=== PATIENT | female | born 1960 | race Caucasian/White ===

== ENCOUNTER → 2020-07-22 16:28 | Outpatient (CLI) | payer OTHER, SELFPAY ==
--- NOTE | 2020-07-22 16:33 | DI.RAD.S_ITS ---
PROCEDURE: XR CERVICAL SPINE 4V OR 5V INDICATIONS: NECK PAIN TECHNIQUE: 5 views of the cervical spine were acquired, including flexion and extension views in the lateral projection. COMPARISON: None. FINDINGS: Bones: Postoperative changes are seen, with an anterior cervical spine fusion plate at the C5-C6 level. The fusion plate appears well seated. There is a disc spacer at C5-C6. No findings of hardware failure or hardware loosening are seen. On flexion-extension views, there is limited range of motion, without abnormal subluxation. No abnormal motion can be seen within the fused region. No displaced fractures are seen. No suspicious lytic or blastic lesions are seen. There is moderate disc space narrowing seen at C4-C5 and moderate to severe disc space narrowing at C6-C7. Endplate irregularity and sclerosis and partially bridging anterior osteophytes are seen at C6-C7. Soft tissues: Prevertebral soft tissues are normal in thickness. The visualized lung apices are unremarkable. IMPRESSION: Unremarkable C5-C6 postoperative hardware. Focal C6-C7 degenerative change. Dictated by: Lupillo Bradley M.D. on 07/22/2020 at 15:48 Approved by: Lupillo Bradley M.D. on 07/22/2020 at 15:50
== END ==
PROVIDERS: Family Provider Family Medicine; PCP Family Medicine; Referring Provider Neurological Surgery; Visit Provider Neurological Surgery
DX: M54.2 Cervicalgia (principal); M47.812 Spondylosis without myelopathy or radiculopathy, cervical region; Z98.1 Arthrodesis status
CPT/HCPCS: 72050; 72052

== ENCOUNTER → 2020-07-23 10:51 | Outpatient (CLI) | payer OTHER, SELFPAY ==
--- NOTE | 2020-07-23 | DI.RAD.S_ITS ---
PROCEDURE: XR LUMBAR SPINE 6V W BENDING INDICATIONS: NECK PAIN/LOW BACK PAIN TECHNIQUE: 7 views of the lumbar spine acquired. COMPARISON: None. FINDINGS: Bones: Partial sacralization of L5. Anterior fusion and disc prosthesis placement at L4-L5. No evidence of hardware failure or loosening. There is normal bony alignment. No vertebral body compression fractures. No suspicious bony lesions. Multilevel posterior facet hypertrophy. Suspect possible canal stenosis at L4-L5 and L5-S1. Soft tissues: Overlying bowel gas pattern is normal. No suspicious soft tissue calcifications. Flexion/extension: There is no abnormal motion on flexion and extension. IMPRESSION: 1. Partial sacralization of L5. 2. Fusion at L4-L5, expected appearance 3. No abnormal motion. 4. Lower lumbar facet hypertrophy. Suspect lower lumbar canal stenosis. Dictated by: Eric Shankar M.D. on 07/23/2020 at 11:30 Approved by: Eric Shankar M.D. on 07/23/2020 at 11:32
== END ==
PROVIDERS: Family Provider Family Medicine; PCP Family Medicine; Referring Provider Neurological Surgery; Visit Provider Neurological Surgery
DX: M54.5 Low back pain (principal); M54.2 Cervicalgia; M43.27 Fusion of spine, lumbosacral region; Z98.1 Arthrodesis status
CPT/HCPCS: 72040; 72114

== ENCOUNTER → 2020-10-02 07:02 | Outpatient (CLI) | payer OTHER, SELFPAY ==
--- NOTE | 2020-10-02 | DI.RAD.S_ITS ---
PROCEDURE: XR CERVICAL SPINE 4V OR 5V INDICATIONS: NECK PAIN TECHNIQUE: 5 views of the cervical spine were acquired. COMPARISON: [facility], , XR CERVICAL SPINE MIN 6V, 07/22/2020, 16:36. FINDINGS: Bones: No fractures or dislocations to the T1 level. ACDF at C5-C6 with anterior plate and screw fixation. No evidence of hardware failure or loosening. Moderately severe cervical spondylitic change. No suspicious bony lesions. There is multilevel facet arthropathy. There is chronic disc height loss at C6-C7. There is trace anterolisthesis of C4 on C5 during flexion measuring approximately 3 mm. There is trace retrolisthesis of C4 on C5 on extension. There is trace anterolisthesis of C3 on C4 on flexion which reduces on extension. Soft tissues: Prevertebral soft tissues are normal in thickness. IMPRESSION: 1. Intact surgical hardware at C5-C6. 2. At C4-C5, there is trace anterolisthesis during flexion and trace retrolisthesis on extension. 3. At C3-C4 there is trace anterolisthesis of C3 on C4 on flexion which reduces on extension. Dictated by: Eric Shankar M.D. on 10/02/2020 at 8:51 Approved by: Eric Shankar M.D. on 10/02/2020 at 8:55
[2020-10-02 07:33] LABS: Add Manual Diff / Slide Review NO; Basophils Absolute Auto 100 /uL (0-100); Eosinophils Absolute Auto 100 /uL (0-450); Eosinophils Percent Auto 2.1 % (2-4); Hemoglobin 12.2 g/dL (12.0-16.0); Lymphocytes Absolute Auto 2700 /uL (1100-4500); Mean Corpuscular HGB Conc 32.1 % (30-36); Mean Corpuscular Hemoglobin 28.6 PG (26-34); Monocytes Absolute Auto 400 /uL (0-900); Monocytes Percent Auto 6.9 % (3-14); Neutrophils Absolute Auto 2700 /uL (1500-7000); Platelet Count 239 X10^3/uL (150-400); Red Blood Cell Count 4.27 X10^6/uL (4.0-5.2); Red Cell Distribution Width 13.4 % (11.6-14.8)
[2020-10-02 07:37] LABS: Alanine Aminotransferase 29 IU/L (<35); Albumin 4.4 g/dL (3.5-5.0); Albumin Globulin Ratio 1.5 (1.0-2.8); Alkaline Phosphatase 56 U/L (38-126); Aspartate Aminotransferase 26 IU/L (14-36); BUN Creatinine Ratio 22.1 (6-22); Bilirubin Total 0.3 mg/dL (0.2-1.3); Blood Urea Nitrogen 15 mg/dL (7-17); Calcium 9.4 mg/dL (8.4-10.2); Carbon Dioxide 32 mmol/L (22-32); Chloride 97 mmol/L (98-107); Estimated Glomerular Filt Rate > 60.0 mL/min (>60); Globulin 2.9 g/dL (1.7-4.1); Glucose 146 mg/dL (70-100); HEMOLYSIS < 15 (0-50); Potassium 4.6 mmol/L (3.4-5.1); Sodium 132 mmol/L (137-145); Total Protein 7.3 g/dL (6.3-8.2)
[2020-10-02 08:12] LABS: Ferritin 95 ng/mL (11-264)
[2020-10-02 08:19] LABS: HEMOLYSIS < 15 (0-50); Iron 78 ug/dL (37-170)
[2020-10-02 08:30] LABS: Percent Iron Saturation 21 % (15-50); Total Iron Binding Capacity 378 ug/dL (265-497); Transferrin 312 mg/dL (206-381)
[2020-10-02 08:40] LABS: Free T4, Direct Thyroxine 1.06 ng/dL (0.78-2.19)
[2020-10-02 08:54] LABS: Thyroid Stimulating Hormone 3.02 uIU/mL (0.47-4.68)
[2020-10-03 09:07] LABS: Triiodothyronine T3 Total 88 ng/dL (71-180)
== END ==
PROVIDERS: Family Provider Family Medicine; PCP Family Medicine; Referring Provider Internal Medicine Hematology & Oncology; Visit Provider Internal Medicine Hematology & Oncology
DX: M54.2 Cervicalgia (principal); D50.9 Iron deficiency anemia, unspecified; R53.83 Other fatigue
CPT/HCPCS: 36415; 72050; 80053; 82728; 83540; 83550; 84439; 84443; 84480; 85025

== ENCOUNTER → 2020-10-09 16:00 | Oncology outpatient (ONC) | payer OTHER, SELFPAY ==
--- NOTE | 2020-03-27 10:18 | P.CONONC_ITS ---
History of Present Illness - Data of Consult Patient: new to practice Consult date: 03/27/20 Requesting Physician: Dr. Haylee Thrasher Primary Care Provider: Shawna Bray MD - Consult Narrative Reason for consult: Iron deficiency anemia Narrative: Gisell Mitchell is a 60 year old female. She has a long history of severe gastroesophageal reflux disease. She has been followed by Dr. Dee Thrasher at [facility]. On 02/05/2020, patient underwent upper endoscopy which showed no evidence of Rivera's esophagus and no hiatal hernia. Biopsies were all benign. Patient also underwent a colonoscopy which showed 2 mm polyp in the sigmoid colon and trace internal hemorrhoids and tiny external hemorrhoidal skin tag. Pathology of the removed polyps was hyperplastic and no malignancy. Anti reflux surgery was recommended and patient agrees to move forward with the surgery. Patient said that she has a lot of regurgitation and a lot of gas. She hurts underneath the xiphoid process. In addition she has noticed tremendous hair loss. She said that her granddaughter has complained a lot. Patient admits to chronic anemia off and on through years. In addition patient has weight gain recently about 20 lb or so. Thyroid function test was normal. She denies any bleeding events. Currently she is taking multiple vitamins with iron in them which she started recently. Gisell brought with her a table of her labs since March 2015 until December 2019. Her white cell count has always within the normal range. Her hemoglobin has shown a rather very slow gradual decline. Her most recent hemoglobin level on 12/31/2019 was 11.4. Her MCV also showed a slow decline. Her most recent MCV on 12/31/2019 was 85.9. Her platelet counts though have remained within the normal range. Her ferritin level has been within the lower limit of normal until December 2018. There after it has decreased to below the normal. Most recent ferritin on 01/04/2020 was 11. CC: Yoli Chauhan MD Home Medications and Allergies Allergies Allergy/AdvReac Type Severity Reaction Status Date / Time bupropion [BUPROPION] Allergy Intermediate NAUSEA Verified 03/27/20 10:25 escitalopram [ESCITALOPRAM] Allergy Intermediate NAUSEA Verified 03/27/20 10:26 Medical History - Medical, Surgical, Family History Medical History: Medical History (Last Updated 03/27/20 @ 18:24 by Yoli Chauhan MD) Acid reflux Anxiety Diverticulosis Hyperlipidemia Hypertension Type 2 diabetes mellitus Surgical History: Surgical History (Last Updated 03/27/20 @ 18:26 by Yoli Chauhan MD) H/O bilateral salpingo-oophorectomy H/O shoulder surgery H/O: hysterectomy History of carpal tunnel release Hx of tubal ligation Family History: Family History (Last Updated 03/27/20 @ 18:27 by Yoli Chauhan MD) Mother Hypertension Father Colon cancer - Social History Smoking Status: Unknown if ever smoked Review of Systems All systems PM: reviewed and no additional remarkable complaints except as stated Constitutional: weight gain Gastrointestinal: nausea, diarrhea Exam Vital signs: 03/27/20 18:28 Last Vital Signs Temp 98.3 F 03/27/20 10:21 Pulse 75 03/27/20 10:21 Resp 16 03/27/20 10:21 BP 144/85 H 03/27/20 10:21 Pulse Ox 98 03/27/20 10:21 - Constitutional positive no acute distress, positive obese, positive chronically ill appearing, positive cooperative - Routine HEENT Exam Head: Present: normocephalic, atraumatic Eye: Present: EOMI, PERRL, normal accommodation. Absent: conjunctival icterus - Routine Neck Exam Present: supple. Absent: lymphadenopathy, thyromegaly - Routine Chest/Breast/Axilla Exam Axillae: Absent: lymphadenopathy - Routine Respiratory Exam Present: Clear to auscultation bilaterally. Absent: accessory muscle use, rales, wheezes - Routine Cardiovascular Exam Present: RRR, S1, S2. Absent: murmur, gallop, rubs - Routine Abdominal Exam Present: soft. Absent: tenderness Palpation/Percussion: Absent: hepatomegaly, splenomegaly - Routine Extremities Exam Absent: edema - Routine Neurological Exam Present: alert, oriented X3, CN II-XII intact. Absent: sensory deficit, motor deficit - Routine Psychiatric Exam Present: normal affect Results - Labs Pending Assessment and Plan (1) Iron (Fe) deficiency anemia Overview: 60-year-old female with chronic iron deficiency anemia of unknown etiology. Assessment: I reviewed the laboratory tests results patient brought in. Patient has significant iron deficiency with ferritin level as low as 11 in December 2019. I talked with the patient that I am going to repeat the iron panels together with CBC and CMPs. I would also proceed with intravenous iron infusion. We will see the patient in about 8 weeks to re-evaluate the iron status. Plan: CBC, CMP, iron panel, ferritin Venofer 200 mg weekly IV x5 Return to clinic in 8 weeks, repeat CBC, CMP, iron panel, and ferritin.
[2020-03-27 10:21] VITALS: BP 144/85; PULSE 75; RESP 16; TEMP 36.8; O2SAT 98
--- NOTE | 2020-03-27 10:26 | PC.NURSE ---
Addendum entered by Gena Devlin 04/01/20 13:37: correct fax # [phone] new clinic name: [facility] new info per patient 04/01/20 Original Note: [place] PCP INFORMATION Dr. Mr. [facility] P:
[2020-03-27 11:31] LABS: Add Manual Diff / Slide Review NO; Basophils Absolute Auto 0 /uL (0-100); Basophils Percent Auto 0.9 % (0-2); Eosinophils Absolute Auto 100 /uL (0-450); Eosinophils Percent Auto 1.9 % (2-4); Hematocrit 34.7 % (36-46); Hemoglobin 11.4 g/dL (12.0-16.0); Lymphocytes Absolute Auto 2400 /uL (1100-4500); Lymphocytes Percent Auto 47.1 % (25-40); Mean Corpuscular HGB Conc 32.9 % (30-36); Mean Corpuscular Hemoglobin 27.7 PG (26-34); Mean Corpuscular Volume 84.2 fL (80-100); Monocytes Absolute Auto 400 /uL (0-900); Monocytes Percent Auto 7.8 % (3-14); Neutrophils Absolute Auto 2200 /uL (1500-7000); Neutrophils Percent Auto 42.3 % (50-75); Platelet Count 223 X10^3/uL (150-400); Red Blood Cell Count 4.12 X10^6/uL (4.0-5.2); White Blood Cell Count 5.1 X10^3/uL (4.5-11.0)
[2020-03-27 11:56] LABS: Alanine Aminotransferase 27 IU/L (<35); Albumin 4.4 g/dL (3.5-5.0); Albumin Globulin Ratio 1.5 (1.0-2.8); Alkaline Phosphatase 66 U/L (38-126); Aspartate Aminotransferase 37 IU/L (14-36); BUN Creatinine Ratio 17.5 (6-22); Bilirubin Total 0.6 mg/dL (0.2-1.3); Blood Urea Nitrogen 11 mg/dL (7-17); Calcium 9.7 mg/dL (8.4-10.2); Carbon Dioxide 25 mmol/L (22-32); Chloride 100 mmol/L (98-107); Estimated Glomerular Filt Rate > 60.0 mL/min (>60); Globulin 2.9 g/dL (1.7-4.1); Glucose 128 mg/dL (70-100); HEMOLYSIS < 15 (0-50); Lactate Dehydrogenase 410 U/L (313-618); Potassium 4.5 mmol/L (3.4-5.1); Sodium 133 mmol/L (137-145); Total Protein 7.3 g/dL (6.3-8.2)
[2020-03-27 12:05] LABS: HEMOLYSIS < 15 (0-50); Iron 101 ug/dL (37-170)
[2020-03-27 12:15] LABS: Percent Iron Saturation 23 % (15-50); Total Iron Binding Capacity 447 ug/dL (265-497); Transferrin 364 mg/dL (206-381)
[2020-03-27 12:31] LABS: Ferritin 11 ng/mL (11-264)
[2020-04-01] MEDS: IRON SUCROSE 200 MG in SODIUM CHLORIDE 0.9% 100 ML 220 ML IV (14:00)
[2020-04-01 14:05] VITALS: BP 147/77; PULSE 80; RESP 18; TEMP 36.6; O2SAT 98
--- NOTE | 2020-04-01 14:06 | PC.NURSE ---
Pt reported that they are having extreme fatigue, it is usual to have a one hour nap, but recently it has been 3 hours with no effect and still tired afterwards. Pt also reported they are having mouth sores that last about a week and are painful. Making the provider aware with this note.
[2020-04-08] MEDS: IRON SUCROSE 200 MG in SODIUM CHLORIDE 0.9% 100 ML 220 ML IV (15:15)
[2020-04-08 15:26] VITALS: BP 144/83; PULSE 88; RESP 16; TEMP 36.9; O2SAT 99
[2020-04-16 12:05] VITALS: BP 128/65; PULSE 85; RESP 16; TEMP 36.6; O2SAT 98
[2020-04-16] MEDS: IRON SUCROSE 200 MG in SODIUM CHLORIDE 0.9% 100 ML 220 ML IV (12:27)
[2020-04-24 14:12] VITALS: BP 131/77; PULSE 73; RESP 16; TEMP 37; O2SAT 98
[2020-04-24] MEDS: IRON SUCROSE 200 MG in SODIUM CHLORIDE 0.9% 100 ML 220 ML IV (14:29)
[2020-04-29] MEDS: IRON SUCROSE 200 MG in SODIUM CHLORIDE 0.9% 100 ML 220 ML IV (14:32)
--- NOTE | 2020-04-29 15:46 | CM.MNRNOTE ---
Pt denies chest pain and SOB. Denies N/V. Speech clear. Gait steady. No s/s of acute distress noted. Tolerated iron infusion w/o difficulty.
[2020-05-13 08:27] LABS: Add Manual Diff / Slide Review NO; Basophils Absolute Auto 0 /uL (0-100); Basophils Percent Auto 0.7 % (0-2); Eosinophils Absolute Auto 100 /uL (0-450); Eosinophils Percent Auto 2.4 % (2-4); Hematocrit 37.1 % (36-46); Hemoglobin 12.2 g/dL (12.0-16.0); Lymphocytes Absolute Auto 2200 /uL (1100-4500); Lymphocytes Percent Auto 42.7 % (25-40); Mean Corpuscular HGB Conc 32.8 % (30-36); Mean Corpuscular Hemoglobin 28.4 PG (26-34); Mean Corpuscular Volume 86.6 fL (80-100); Monocytes Absolute Auto 400 /uL (0-900); Monocytes Percent Auto 8.7 % (3-14); Neutrophils Absolute Auto 2300 /uL (1500-7000); Neutrophils Percent Auto 45.5 % (50-75); Platelet Count 214 X10^3/uL (150-400); Red Blood Cell Count 4.28 X10^6/uL (4.0-5.2); Red Cell Distribution Width 15.1 % (11.6-14.8); White Blood Cell Count 5.1 X10^3/uL (4.5-11.0)
[2020-05-13 08:38] LABS: Alanine Aminotransferase 33 IU/L (<35); Albumin 4.4 g/dL (3.5-5.0); Albumin Globulin Ratio 1.6 (1.0-2.8); Alkaline Phosphatase 56 U/L (38-126); Aspartate Aminotransferase 29 IU/L (14-36); BUN Creatinine Ratio 21.9 (6-22); Bilirubin Total 0.4 mg/dL (0.2-1.3); Blood Urea Nitrogen 16 mg/dL (7-17); Calcium 9.2 mg/dL (8.4-10.2); Carbon Dioxide 29 mmol/L (22-32); Chloride 101 mmol/L (98-107); Estimated Glomerular Filt Rate > 60.0 mL/min (>60); Globulin 2.8 g/dL (1.7-4.1); Glucose 129 mg/dL (70-100); HEMOLYSIS < 15 (0-50); Potassium 4.8 mmol/L (3.4-5.1); Sodium 138 mmol/L (137-145); Total Protein 7.2 g/dL (6.3-8.2)
[2020-05-13 09:13] LABS: Ferritin 193 ng/mL (11-264)
[2020-05-13 09:16] LABS: HEMOLYSIS < 15 (0-50); Iron 97 ug/dL (37-170)
[2020-05-13 09:26] LABS: Percent Iron Saturation 28 % (15-50); Total Iron Binding Capacity 343 ug/dL (265-497); Transferrin 298 mg/dL (206-381)
[2020-05-22 11:10] VITALS: BP 138/83; PULSE 79; RESP 16; TEMP 36.7; O2SAT 99
--- NOTE | 2020-05-22 11:27 | P.PNONC_ITS ---
PN -Subjective Interval history: ID/CC: 60 year old female with iron deficiency anemia HPI Gisell Mitchell is a 60 year old female. She has a long history of severe gastroesophageal reflux disease. She has been followed by Dr. Dee Thrasher at [facility]. On 02/05/2020, patient underwent upper endoscopy which showed no evidence of Rivera's esophagus and no hiatal hernia. Biopsies were all benign. Patient also underwent a colonoscopy which showed 2 mm polyp in the sigmoid colon and trace internal hemorrhoids and tiny external hemorrhoidal skin tag. Pathology of the removed polyps was hyperplastic and no malignancy. Anti- reflux surgery was recommended and patient agrees to move forward with the surgery. Gisell brought with her a table of her labs since March 2015 until December 2019. Her white cell count has always within the normal range. Her hemoglobin has shown a rather very slow gradual decline. Her hemoglobin level on 12/31/2019 was 11.4. Her MCV also showed a slow decline. Her MCV on 12/31/2019 was 85.9. Her platelet counts though have remained within the normal range. Her ferritin level has been within the lower limit of normal until December 2018. Thereafter it has decreased to below the normal. Frritin on 01/04/2020 was 11. Interval events: She cancelled her surgery on 04/29/2020 due to family issues. She is planning to get it next spring. During the interim patient completed Venofer infusion weekly 200 mg x 5. Patient tolerated well. Patient said that she has noticed slightly better energy level. However she said she cannot tell for sure because she was so busy during this. Of the time taking care of her in-laws. She denies any bleeding events. - Patient Self-Reported Symptoms SR Constitution: Fatigue/Malaise SR eye issues: Vision changes SR ears, nose, mouth, throat issues: Ears ringing, Mouth sores SR respiratory issues: Shortness of breath SR Cardiovascular issues: Dizzy/lightheaded SR Skin issues: Dry skin, Hair loss or scalp prob, Nail changes SR Gastrointestinal issues: Nausea, Diarrhea, Abdominal pain SR Musculoskeletal issues: Joint pain or swelling, Muscle pain or cramps, Back or neck pain, Difficulty walking SR Neuro issues: Lightheaded/dizzy, Difficulty balancing SR Hematologic issues: Slow healing SR Endocrine issues: Hot flashes - Additional ROS All systems PM: reviewed and no additional remarkable complaints except as stated Home Medications and Allergies Allergies Allergy/AdvReac Type Severity Reaction Status Date / Time bupropion [BUPROPION] Allergy Intermediate NAUSEA Verified 03/27/20 10:25 escitalopram [ESCITALOPRAM] Allergy Intermediate NAUSEA Verified 03/27/20 10:26 Exam Vital signs: Vital Signs Temp Pulse Resp BP Pulse Ox 05/22/20 11:10 98.1 F 79 16 138/83 99 Intake and Output 05/21/20 05/22/20 05/22/20 23:59 07:59 15:59 Other: Weight 71.2 kg Patient Weight 05/22/20 23:59 Weight 71.2 kg - Constitutional positive no acute distress, positive obese, positive cooperative - Routine HEENT Exam Head: Present: normocephalic, atraumatic Eye: Present: EOMI, PERRL ENT: Present: mucous membranes moist - Routine Neck Exam Present: supple. Absent: lymphadenopathy, thyromegaly - Routine Chest/Breast/Axilla Exam Axillae: Absent: lymphadenopathy - Routine Respiratory Exam Present: Clear to auscultation bilaterally. Absent: wheezes - Routine Cardiovascular Exam Present: RRR, S1, S2. Absent: murmur, gallop, rubs - Routine Abdominal Exam Present: soft. Absent: tenderness, distended, organomegaly - Routine Extremities Exam Absent: edema - Routine Neurological Exam Present: alert, oriented X3, CN II-XII intact. Absent: sensory deficit, motor deficit - Routine Psychiatric Exam Present: normal affect Results - Labs Laboratory Last Values WBC 5.1 X10^3/uL (4.5-11.0) 05/13/20 08:14 RBC 4.28 X10^6/uL (4.0-5.2) 05/13/20 08:14 Hgb 12.2 g/dL (12.0-16.0) 05/13/20 08:14 Hct 37.1 % (36-46) 05/13/20 08:14 MCV 86.6 fL (80-100) 05/13/20 08:14 MCH 28.4 PG (26-34) 05/13/20 08:14 MCHC 32.8 % (30-36) 05/13/20 08:14 RDW 15.1 % (11.6-14.8) H 05/13/20 08:14 Plt Count 214 X10^3/uL (150-400) 05/13/20 08:14 Neut % (Auto) 45.5 % (50-75) L 05/13/20 08:14 Lymph % (Auto) 42.7 % (25-40) H 05/13/20 08:14 [place] % (Auto) 8.7 % (3-14) 05/13/20 08:14 Eos % (Auto) 2.4 % (2-4) 05/13/20 08:14 Baso % (Auto) 0.7 % (0-2) 05/13/20 08:14 Neut # (Auto) 2300 /uL (0970-9361) 05/13/20 08:14 Lymph # (Auto) 2200 /uL (4434-7500) 05/13/20 08:14 [place] # (Auto) 400 /uL (0-900) 05/13/20 08:14 Eos # (Auto) 100 /uL (0-450) 05/13/20 08:14 Baso # (Auto) 0 /uL (0-100) 05/13/20 08:14 Sodium 138 mmol/L (137-145) 05/13/20 08:14 Potassium 4.8 mmol/L (3.4-5.1) 05/13/20 08:14 Chloride 101 mmol/L (98-107) 05/13/20 08:14 Carbon Dioxide 29 mmol/L (22-32) 05/13/20 08:14 BUN 16 mg/dL (7-17) 05/13/20 08:14 Creatinine 0.73 mg/dL (0.52-1.04) 05/13/20 08:14 Estimated GFR > 60.0 mL/min (>60) 05/13/20 08:14 BUN/Creatinine Ratio 21.9 (6-22) 05/13/20 08:14 Glucose 129 mg/dL (70-100) H 05/13/20 08:14 Calcium 9.2 mg/dL (8.4-10.2) 05/13/20 08:14 Iron 97 ug/dL (37-170) 05/13/20 08:14 TIBC 343 ug/dL (265-497) 05/13/20 08:14 % Saturation 28 % (15-50) 05/13/20 08:14 Transferrin 298 mg/dL (206-381) 05/13/20 08:14 Ferritin 193 ng/mL (11-264) 05/13/20 08:14 Total Bilirubin 0.4 mg/dL (0.2-1.3) 05/13/20 08:14 AST 29 IU/L (14-36) 05/13/20 08:14 ALT 33 IU/L (<35) 05/13/20 08:14 Alkaline Phosphatase 56 U/L (38-126) 05/13/20 08:14 Lactate Dehydrogenase 410 U/L (313-618) 03/27/20 11:20 Total Protein 7.2 g/dL (6.3-8.2) 05/13/20 08:14 Albumin 4.4 g/dL (3.5-5.0) 05/13/20 08:14 Globulin 2.8 g/dL (1.7-4.1) 05/13/20 08:14 Albumin/Globulin Ratio 1.6 (1.0-2.8) 05/13/20 08:14 Assessment and Plan (1) Iron (Fe) deficiency anemia Overview: 60-year-old female with chronic iron deficiency anemia of unknown etiology. Assessment: Patient completed the iron infusion Venofer weekly x5 on 04/01/2020. Today I reviewed the lab results with the patient. The hemoglobin level has normalized. The iron panel has completely normalized. I talked with the patient that I will continue current active surveillance. If patient again shows iron deficiency, patient will need iron infusion again. Patient voiced understanding. Plan: Return to clinic in 12 weeks, repeat CBC, CMP, iron panel, and ferritin.
[2020-08-19 07:41] LABS: Add Manual Diff / Slide Review NO; Basophils Absolute Auto 0 /uL (0-100); Basophils Percent Auto 0.5 % (0-2); Eosinophils Absolute Auto 100 /uL (0-450); Eosinophils Percent Auto 2.4 % (2-4); Hematocrit 36.5 % (36-46); Hemoglobin 12.1 g/dL (12.0-16.0); Lymphocytes Absolute Auto 2500 /uL (1100-4500); Lymphocytes Percent Auto 45.5 % (25-40); Mean Corpuscular HGB Conc 33.1 % (30-36); Mean Corpuscular Volume 87.6 fL (80-100); Monocytes Absolute Auto 500 /uL (0-900); Monocytes Percent Auto 8.4 % (3-14); Neutrophils Absolute Auto 2300 /uL (1500-7000); Neutrophils Percent Auto 43.2 % (50-75); Platelet Count 234 X10^3/uL (150-400); Red Blood Cell Count 4.17 X10^6/uL (4.0-5.2); Red Cell Distribution Width 13.3 % (11.6-14.8); White Blood Cell Count 5.4 X10^3/uL (4.5-11.0)
[2020-08-19 07:52] LABS: Alanine Aminotransferase 29 IU/L (<35); Albumin 4.3 g/dL (3.5-5.0); Albumin Globulin Ratio 1.4 (1.0-2.8); Alkaline Phosphatase 63 U/L (38-126); Aspartate Aminotransferase 27 IU/L (14-36); BUN Creatinine Ratio 11.9 (6-22); Bilirubin Total 0.3 mg/dL (0.2-1.3); Blood Urea Nitrogen 8 mg/dL (7-17); Calcium 9.1 mg/dL (8.4-10.2); Carbon Dioxide 31 mmol/L (22-32); Chloride 99 mmol/L (98-107); Estimated Glomerular Filt Rate > 60.0 mL/min (>60); Glucose 149 mg/dL (70-100); HEMOLYSIS < 15 (0-50); Potassium 4.4 mmol/L (3.4-5.1); Sodium 134 mmol/L (137-145); Total Protein 7.3 g/dL (6.3-8.2)
[2020-08-19 08:08] LABS: HEMOLYSIS < 15 (0-50); Iron 91 ug/dL (37-170)
[2020-08-19 08:19] LABS: Percent Iron Saturation 24 % (15-50); Total Iron Binding Capacity 377 ug/dL (265-497); Transferrin 308 mg/dL (206-381)
[2020-08-19 08:27] LABS: Ferritin 138 ng/mL (11-264)
[2020-08-28 11:18] VITALS: BP 145/82; PULSE 69; RESP 18; O2SAT 100
--- NOTE | 2020-08-28 11:45 | ONC.PN ---
PN -Subjective Interval history: ID/CC: 60 year old female with iron deficiency anemia HPI Gisell Mitchell is a 60 year old female. She has a long history of severe gastroesophageal reflux disease. She has been followed by Dr. Dee Thrasher at [facility]. On 02/05/2020, patient underwent upper endoscopy which showed no evidence of Rivera's esophagus and no hiatal hernia. Biopsies were all benign. Patient also underwent a colonoscopy which showed 2 mm polyp in the sigmoid colon and trace internal hemorrhoids and tiny external hemorrhoidal skin tag. Pathology of the removed polyps was hyperplastic and no malignancy. Anti-reflux surgery was recommended and patient agrees to move forward with the surgery. Gisell brought with her a table of her labs since March 2015 until December 2019. Her white cell count has always within the normal range. Her hemoglobin has shown a rather very slow gradual decline. Her hemoglobin level on 12/31/2019 was 11.4. Her MCV also showed a slow decline. Her MCV on 12/31/2019 was 85.9. Her platelet counts though have remained within the normal range. Her ferritin level has been within the lower limit of normal until December 2018. Thereafter it has decreased to below the normal. Frritin on 01/04/2020 was 11. Interval events: Patient presents here today for scheduled follow-up visit. Patient said that she noticed worsening hair loss, worsening fatigue, and is becoming more sleepy. She said she is also drinking lot of fluids. Otherwise she denies any bleeding events. - Patient Self-Reported Symptoms SR Constitution: Fatigue/Malaise, Night Sweats SR eye issues: Vision changes SR ears, nose, mouth, throat issues: Ears ringing, Mouth sores SR respiratory issues: Shortness of breath SR Cardiovascular issues: Dizzy/lightheaded SR Skin issues: Dry skin, Hair loss or scalp prob SR Gastrointestinal issues: Diarrhea SR Musculoskeletal issues: Joint pain or swelling, Muscle weakness, Muscle pain or cramps, Back or neck pain, Cold hands or feet, Difficulty walking SR Neuro issues: Headache, Lightheaded/dizzy, Numbness or tingling, Difficulty balancing SR Hematologic issues: Slow healing SR Endocrine issues: Excessive thirst, Hot flashes - Additional ROS All systems PM: reviewed and no additional remarkable complaints except as stated Home Medications and Allergies Home Medications Medication Instructions Recorded Confirmed Type albuterol sulfate 2.5 mg INHALATION QID PRN 05/22/20 05/22/20 History albuterol sulfate [ProAir HFA] 1 inh INHALATION QID PRN 05/22/20 05/22/20 History ascorbic acid-vitamin E-biotin tab PO 05/22/20 History [Hair, Skin, Nails with Biotin] clonazepam 1 mg PO BEDTIME 05/22/20 05/22/20 History conjugated estrogens [Premarin] 0.3 mg PO DAILY 05/22/20 05/22/20 History cyclobenzaprine 5 mg PRN 05/22/20 History ezetimibe-simvastatin [Vytorin 1 tab PO DAILY 05/22/20 05/22/20 History 10-40] fexofenadine [[place] Allergy] 180 mg PO DAILY 05/22/20 05/22/20 History fluoxetine [Prozac] 20 mg PO DAILY 05/22/20 05/22/20 History fluticasone propion-salmeterol INHALATION 05/22/20 History [Advair Diskus] fluticasone propionate [Allergy 1 spray INTRANASAL BID 05/22/20 05/22/20 History Relief (fluticasone)] gabapentin 100 mg PO TID 05/22/20 05/22/20 History ibuprofen 800 mg PO Q6H PRN 05/22/20 05/22/20 History meclizine 12.5 mg PO BID PRN 05/22/20 05/22/20 History meloxicam 15 mg PO DAILY 05/22/20 05/22/20 History metformin 500 mg PO BID 05/22/20 05/22/20 History methocarbamol 500 mg PO PRN 05/22/20 History olopatadine [Pazeo] 1 drp OPHTHALMIC (EYE) DAILY 05/22/20 05/22/20 History omeprazole 40 mg PO BID 05/22/20 05/22/20 History Allergies Allergy/AdvReac Type Severity Reaction Status Date / Time bupropion [BUPROPION] Allergy Intermediate NAUSEA Verified 03/27/20 10:25 escitalopram [ESCITALOPRAM] Allergy Intermediate NAUSEA Verified 03/27/20 10:26 Exam Vital signs: Vital Signs Pulse Resp BP Pulse Ox 08/28/20 11:18 69 18 145/82 H 100 Intake and Output 08/27/20 08/28/20 08/28/20 23:59 07:59 15:59 Other: Weight 72.6 kg Patient Weight 08/28/20 23:59 Weight 72.6 kg Results - Labs Laboratory Last Values WBC 5.4 X10^3/uL (4.5-11.0) 08/19/20 07:33 RBC 4.17 X10^6/uL (4.0-5.2) 08/19/20 07:33 Hgb 12.1 g/dL (12.0-16.0) 08/19/20 07:33 Hct 36.5 % (36-46) 08/19/20 07:33 MCV 87.6 fL (80-100) 08/19/20 07:33 MCH 29.0 PG (26-34) 08/19/20 07:33 MCHC 33.1 % (30-36) 08/19/20 07:33 RDW 13.3 % (11.6-14.8) 08/19/20 07:33 Plt Count 234 X10^3/uL (150-400) 08/19/20 07:33 Neut % (Auto) 43.2 % (50-75) L 08/19/20 07:33 Lymph % (Auto) 45.5 % (25-40) H 08/19/20 07:33 [place] % (Auto) 8.4 % (3-14) 08/19/20 07:33 Eos % (Auto) 2.4 % (2-4) 08/19/20 07:33 Baso % (Auto) 0.5 % (0-2) 08/19/20 07:33 Neut # (Auto) 2300 /uL (0186-4446) 08/19/20 07:33 Lymph # (Auto) 2500 /uL (7921-1289) 08/19/20 07:33 [place] # (Auto) 500 /uL (0-900) 08/19/20 07:33 Eos # (Auto) 100 /uL (0-450) 08/19/20 07:33 Baso # (Auto) 0 /uL (0-100) 08/19/20 07:33 Sodium 134 mmol/L (137-145) L 08/19/20 07:33 Potassium 4.4 mmol/L (3.4-5.1) 08/19/20 07:33 Chloride 99 mmol/L (98-107) 08/19/20 07:33 Carbon Dioxide 31 mmol/L (22-32) 08/19/20 07:33 BUN 8 mg/dL (7-17) 08/19/20 07:33 Creatinine 0.67 mg/dL (0.52-1.04) 08/19/20 07:33 Estimated GFR > 60.0 mL/min (>60) 08/19/20 07:33 BUN/Creatinine Ratio 11.9 (6-22) 08/19/20 07:33 Glucose 149 mg/dL (70-100) H 08/19/20 07:33 Calcium 9.1 mg/dL (8.4-10.2) 08/19/20 07:33 Iron 91 ug/dL (37-170) 08/19/20 07:33 TIBC 377 ug/dL (265-497) 08/19/20 07:33 % Saturation 24 % (15-50) 08/19/20 07:33 Transferrin 308 mg/dL (206-381) 08/19/20 07:33 Ferritin 138 ng/mL (11-264) 08/19/20 07:33 Total Bilirubin 0.3 mg/dL (0.2-1.3) 08/19/20 07:33 AST 27 IU/L (14-36) 08/19/20 07:33 ALT 29 IU/L (<35) 08/19/20 07:33 Alkaline Phosphatase 63 U/L (38-126) 08/19/20 07:33 Lactate Dehydrogenase 410 U/L (313-618) 03/27/20 11:20 Total Protein 7.3 g/dL (6.3-8.2) 08/19/20 07:33 Albumin 4.3 g/dL (3.5-5.0) 08/19/20 07:33 Globulin 3.0 g/dL (1.7-4.1) 08/19/20 07:33 Albumin/Globulin Ratio 1.4 (1.0-2.8) 08/19/20 07:33 Assessment and Plan (1) Iron (Fe) deficiency anemia Overview: 60-year-old female with chronic iron deficiency anemia of unknown etiology.Patient completed the iron infusion Venofer weekly x5 on 04/01/2020. Assessment: Clinically, patient is complaining fatigue, hair loss, and sleepiness. I reviewed the lab results with the patient. The H and H were normal. Iron panels were normal. Ferritin level was normal. I talked with her and her that I do not think that iron deficiency is the reason for the clinical symptoms. Other possibilities including poor controlled diabetes or hypothyroidism. I would recommend that we continue monitoring closely. Plan: Return to clinic in 6 weeks, repeat CBC, CMP, iron panel, and ferritin, TSH, FT4, T3
--- NOTE | 2020-10-09 17:15 | ONC.PN ---
PN -Subjective Interval history: ID/CC: 60 year old female with iron deficiency anemia HPI Gisell Mitchell is a 60 year old female. She has a long history of severe gastroesophageal reflux disease. She has been followed by Dr. Dee Thrasher at [facility]. On 02/05/2020, patient underwent upper endoscopy which showed no evidence of Rivera's esophagus and no hiatal hernia. Biopsies were all benign. Patient also underwent a colonoscopy which showed 2 mm polyp in the sigmoid colon and trace internal hemorrhoids and tiny external hemorrhoidal skin tag. Pathology of the removed polyps was hyperplastic and no malignancy. Anti-reflux surgery was recommended and patient agrees to move forward with the surgery. Gisell brought with her a table of her labs since March 2015 until December 2019. Her white cell count has always within the normal range. Her hemoglobin has shown a rather very slow gradual decline. Her hemoglobin level on 12/31/2019 was 11.4. Her MCV also showed a slow decline. Her MCV on 12/31/2019 was 85.9. Her platelet counts though have remained within the normal range. Her ferritin level has been within the lower limit of normal until December 2018. Thereafter it has decreased to below the normal. Frritin on 01/04/2020 was 11. Interval events: Patient completed iron infusion about in March 2020. However patient said that even after the iron infusion, she still complaining significant fatigue and low energy level. She denies any bleeding events. She denies any nausea or vomiting. No diarrhea and no constipation. - Patient Self-Reported Symptoms SR Constitution: Fatigue/Malaise, Night Sweats SR eye issues: Vision changes SR ears, nose, mouth, throat issues: Ears ringing, Mouth sores SR respiratory issues: Shortness of breath SR Cardiovascular issues: Dizzy/lightheaded SR Skin issues: Dry skin, Hair loss or scalp prob SR Gastrointestinal issues: Diarrhea SR Musculoskeletal issues: Joint pain or swelling, Muscle weakness, Muscle pain or cramps, Back or neck pain, Cold hands or feet, Difficulty walking SR Neuro issues: Headache, Lightheaded/dizzy, Numbness or tingling, Difficulty balancing SR Hematologic issues: Slow healing SR Endocrine issues: Excessive thirst, Hot flashes - Additional ROS All systems PM: reviewed and no additional remarkable complaints except as stated Home Medications and Allergies Home Medications Medication Instructions Recorded Confirmed Type albuterol sulfate 2.5 mg INHALATION QID PRN 05/22/20 05/22/20 History albuterol sulfate [ProAir HFA] 1 inh INHALATION QID PRN 05/22/20 05/22/20 History ascorbic acid-vitamin E-biotin tab PO 05/22/20 History [Hair, Skin, Nails with Biotin] clonazepam 1 mg PO BEDTIME 05/22/20 05/22/20 History conjugated estrogens [Premarin] 0.3 mg PO DAILY 05/22/20 05/22/20 History cyclobenzaprine 5 mg PRN 05/22/20 History ezetimibe-simvastatin [Vytorin 1 tab PO DAILY 05/22/20 05/22/20 History 10-40] fexofenadine [Medina Allergy] 180 mg PO DAILY 05/22/20 05/22/20 History fluoxetine [Prozac] 20 mg PO DAILY 05/22/20 05/22/20 History fluticasone propion-salmeterol INHALATION 05/22/20 History [Advair Diskus] fluticasone propionate [Allergy 1 spray INTRANASAL BID 05/22/20 05/22/20 History Relief (fluticasone)] gabapentin 100 mg PO TID 05/22/20 05/22/20 History ibuprofen 800 mg PO Q6H PRN 05/22/20 05/22/20 History meclizine 12.5 mg PO BID PRN 05/22/20 05/22/20 History meloxicam 15 mg PO DAILY 05/22/20 05/22/20 History metformin 500 mg PO BID 05/22/20 05/22/20 History methocarbamol 500 mg PO PRN 05/22/20 History olopatadine [Pazeo] 1 drp OPHTHALMIC (EYE) DAILY 05/22/20 05/22/20 History omeprazole 40 mg PO BID 05/22/20 05/22/20 History Allergies Allergy/AdvReac Type Severity Reaction Status Date / Time bupropion [BUPROPION] Allergy Intermediate NAUSEA Verified 03/27/20 10:25 escitalopram [ESCITALOPRAM] Allergy Intermediate NAUSEA Verified 03/27/20 10:26 Exam Vital signs: 10/09/20 17:27 Last Vital Signs Temp 98.2 F 10/09/20 17:18 Pulse 75 10/09/20 17:18 Resp 18 10/09/20 17:18 BP 135/75 10/09/20 17:18 Pulse Ox 98 10/09/20 17:18 Results - Labs Laboratory Last Values WBC 5.4 X10^3/uL (4.5-11.0) 08/19/20 07:33 RBC 4.17 X10^6/uL (4.0-5.2) 08/19/20 07:33 Hgb 12.1 g/dL (12.0-16.0) 08/19/20 07:33 Hct 36.5 % (36-46) 08/19/20 07:33 MCV 87.6 fL (80-100) 08/19/20 07:33 MCH 29.0 PG (26-34) 08/19/20 07:33 MCHC 33.1 % (30-36) 08/19/20 07:33 RDW 13.3 % (11.6-14.8) 08/19/20 07:33 Plt Count 234 X10^3/uL (150-400) 08/19/20 07:33 Neut % (Auto) 43.2 % (50-75) L 08/19/20 07:33 Lymph % (Auto) 45.5 % (25-40) H 08/19/20 07:33 Stearns % (Auto) 8.4 % (3-14) 08/19/20 07:33 Eos % (Auto) 2.4 % (2-4) 08/19/20 07:33 Baso % (Auto) 0.5 % (0-2) 08/19/20 07:33 Neut # (Auto) 2300 /uL (0288-5692) 08/19/20 07:33 Lymph # (Auto) 2500 /uL (0127-5372) 08/19/20 07:33 Stearns # (Auto) 500 /uL (0-900) 08/19/20 07:33 Eos # (Auto) 100 /uL (0-450) 08/19/20 07:33 Baso # (Auto) 0 /uL (0-100) 08/19/20 07:33 Sodium 134 mmol/L (137-145) L 08/19/20 07:33 Potassium 4.4 mmol/L (3.4-5.1) 08/19/20 07:33 Chloride 99 mmol/L (98-107) 08/19/20 07:33 Carbon Dioxide 31 mmol/L (22-32) 08/19/20 07:33 BUN 8 mg/dL (7-17) 08/19/20 07:33 Creatinine 0.67 mg/dL (0.52-1.04) 08/19/20 07:33 Estimated GFR > 60.0 mL/min (>60) 08/19/20 07:33 BUN/Creatinine Ratio 11.9 (6-22) 08/19/20 07:33 Glucose 149 mg/dL (70-100) H 08/19/20 07:33 Calcium 9.1 mg/dL (8.4-10.2) 08/19/20 07:33 Iron 91 ug/dL (37-170) 08/19/20 07:33 TIBC 377 ug/dL (265-497) 08/19/20 07:33 % Saturation 24 % (15-50) 08/19/20 07:33 Transferrin 308 mg/dL (206-381) 08/19/20 07:33 Ferritin 138 ng/mL (11-264) 08/19/20 07:33 Total Bilirubin 0.3 mg/dL (0.2-1.3) 08/19/20 07:33 AST 27 IU/L (14-36) 08/19/20 07:33 ALT 29 IU/L (<35) 08/19/20 07:33 Alkaline Phosphatase 63 U/L (38-126) 08/19/20 07:33 Lactate Dehydrogenase 410 U/L (313-618) 03/27/20 11:20 Total Protein 7.3 g/dL (6.3-8.2) 08/19/20 07:33 Albumin 4.3 g/dL (3.5-5.0) 08/19/20 07:33 Globulin 3.0 g/dL (1.7-4.1) 08/19/20 07:33 Albumin/Globulin Ratio 1.4 (1.0-2.8) 08/19/20 07:33 Assessment and Plan (1) Iron (Fe) deficiency anemia Overview: 60-year-old female with chronic iron deficiency anemia of unknown etiology.Patient completed the iron infusion Venofer weekly x5 on 04/01/2020. Assessment: Today I reviewed the lab results with the patient. The CBC, CMP and thyroid function as well as iron panels including ferritin are all within the normal range. However clinically patient is still complaining of fatigue. I talked with her that I do not think that the symptoms are related to the iron deficiency anymore. There are some other etiologies unidentified. Patient has already had colonoscopy in January of last year which was negative for malignancy. I encouraged the patient to follow up with her primary care provider and I will see the patient on an as needed basis. Plan: RTC PRN
[2020-10-09 17:18] VITALS: BP 135/75; PULSE 75; RESP 18; TEMP 36.8; O2SAT 98
== END ==
PROVIDERS: Family Provider Family Medicine; PCP Family Medicine; Referring Provider Family Medicine; Visit Provider Internal Medicine Hematology & Oncology
DX: D50.9 Iron deficiency anemia, unspecified (principal); K21.9 Gastro-esophageal reflux disease without esophagitis; R53.83 Other fatigue
CPT/HCPCS: 36415; 80053; 82728; 83540; 83550; 83615; 85025; 96365; 99204; 99213; 99214; J1756

== ENCOUNTER → 2020-12-30 06:44 | Outpatient (CLI) | payer OTHER, SELFPAY ==
--- NOTE | 2020-12-30 07:10 | DI.CT.S_ITS ---
PROCEDURE: CT UE RT WO CON INDICATIONS: Nondisplaced fracture of middle third of navicular TECHNIQUE: Noncontrast 1 mm axial sections acquired through the carpal bones, with coronal and sagittal reformats. COMPARISON: None. FINDINGS: Image quality: Excellent. Bones: Postsurgical changes related to screw fixation of the scaphoid. Hardware appears intact and there is expected alignment. There is bridging ossification present. No evidence of hardware loosening identified. Scattered degenerative subchondral sclerosis and spurring. No acute fracture. Presumed bone graft harvest site in the distal radius. Soft tissues: Prominent fat attenuation presumed lipoma measuring 1.3 x 1.4 cm on image 144/3 presumably lipoma interposed between the ring finger and middle finger flexor tendons. IMPRESSION: Screw fixation of the scaphoid, with bridging ossification. No definite evidence of hardware loosening. Presumed lipoma adjacent to the flexor tendons of the ring finger and middle finger. Please correlate to clinical exam findings to determine the actual significance. If clinically suspicious, long-term follow-up with CT could be performed to document stability. Dictated by: Angelo Torrez M.D. on 12/30/2020 at 9:43 Approved by: Angelo Torrez M.D. on 12/30/2020 at 9:46
== END ==
PROVIDERS: Family Provider Family Medicine; PCP Family Medicine; Referring Provider Orthopaedic Surgery; Visit Provider Orthopaedic Surgery
DX: S62.024K Nondisplaced fracture of middle third of navicular [scaphoid] bone of right wrist, subsequent encounter for fracture with nonunion (principal); G56.01 Carpal tunnel syndrome, right upper limb
CPT/HCPCS: 73200

== ENCOUNTER → 2021-05-18 10:25 | Outpatient (CLI) | payer OTHER, SELFPAY ==
--- NOTE | 2021-05-18 | DI.RAD.S_ITS ---
PROCEDURE: XR CERVICAL SPINE 2V OR 3V INDICATIONS: Cervicalgia TECHNIQUE: 3 view(s) of the cervical spine were acquired. COMPARISON: [facility], CR, XR CERVICAL SPINE 4V OR 5V, 10/02/2020, 7:33. FINDINGS: Bones: No acute fracture identified. Postsurgical changes related to ACDF from the level of C4-C7. Associated interbody cage grafts present. Hardware appears intact and expected alignment. Multilevel degenerative endplate sclerosis and spurring. Diffuse facet arthropathy. Minimal narrowing of the C3-C4 disc space. No evidence of abnormal motion with dynamic flexion and extension lateral views. Soft tissues: No prevertebral soft tissue swelling. IMPRESSION: Postsurgical and spondylitic changes as above. No evidence of abnormal motion with dynamic flexion and extension lateral views. Dictated by: Angelo Torrez M.D. on 05/18/2021 at 11:26 Approved by: Angelo Torrez M.D. on 05/18/2021 at 11:33
== END ==
PROVIDERS: Family Provider Family Medicine; PCP Family Medicine; Referring Provider Neurological Surgery; Visit Provider Neurological Surgery
DX: M54.2 Cervicalgia (principal); M47.812 Spondylosis without myelopathy or radiculopathy, cervical region; Z98.1 Arthrodesis status
CPT/HCPCS: 72040

== ENCOUNTER → 2021-12-01 15:01 | Outpatient (CLI) | payer OTHER, SELFPAY ==
--- NOTE | 2021-12-01 | DI.RAD.S_ITS ---
PROCEDURE: XR CERVICAL SPINE 4V OR 5V INDICATIONS: NECK PAIN TECHNIQUE: 5 views of the cervical spine were acquired. COMPARISON: [facility], CR, XR CERVICAL SPINE 2V OR 3V, 05/18/2021, 10:35. [facility], CR, XR CERVICAL SPINE 4V OR 5V, 10/02/2020, 7:33. FINDINGS: Bones: No fractures or dislocations to the T1 level. No suspicious bony lesions. Prior ACDF from the level of C4 through C7 with hardware and intervertebral disc spaces in expected position. Multilevel degenerative endplate sclerosis and mild spurring. Mild diffuse facet joint arthropathy. Minimal narrowing of the C3-C4 disc space as before. There is normal range of motion between flexion and extension, with preserved normal bony alignment. Soft tissues: Prevertebral soft tissues are normal in thickness. IMPRESSION: 1. Stable postsurgical sequelae and bony alignment. 2. Mild multilevel spondylosis similar prior examination. Dictated by: Martin Gutiérrez [facility] Interpreted: Pankaj Zarate MD on 12/01/2021 at 16:35 Transcribed by: CRISTOBAL on 12/01/2021 at 16:37 Approved by: Pankaj Zarate M.D. on 12/01/2021 at 18:08
== END ==
PROVIDERS: Family Provider Family Medicine; PCP Family Medicine; Referring Provider Neurological Surgery; Visit Provider Neurological Surgery
DX: M47.812 Spondylosis without myelopathy or radiculopathy, cervical region (principal); Z98.1 Arthrodesis status
CPT/HCPCS: 72050

== ENCOUNTER → 2022-01-07 10:45 | Outpatient (CLI) | payer OTHER, SELFPAY ==
[2022-01-07 13:34] LABS: TSH w/ Reflex to FT4 2.15 uIU/mL (0.47-4.68)
== END ==
PROVIDERS: Family Provider Family Medicine; PCP Family Medicine; Referring Provider Family Medicine; Visit Provider Family Medicine
DX: R53.83 Other fatigue (principal)
CPT/HCPCS: 36415; 84443

== ENCOUNTER → 2024-02-10 06:34 | Outpatient (CLI) | payer OTHER, SELFPAY ==
--- NOTE | 2024-02-10 06:40 | DI.US.S_ITS ---
PROCEDURE: US THYROID INDICATIONS: MULTIPLE THYROID NODULES TECHNIQUE: Real-time scanning was performed of the thyroid gland, with image documentation. COMPARISON: None. FINDINGS: Thyroid: Right lobe measures 5.1 x 1.2 x 1.5 cm. Left lobe measures 3.6 x 1.0 x 1.5 cm. Isthmus is 0.2 cm thick. Echotexture is heterogeneous. There are tiny hypodense nodules bilaterally. IMPRESSION: 1. Thyroid gland is heterogeneous. Please correlate with thyroid function tests. 2. No suspicious nodules require ultrasound follow-up. ACR TI-RADS definitions and recommendations: TI-RADS 1 (benign): 0 points. FNA not needed. TI-RADS 2 (not suspicious): 2 points. FNA not needed. TI-RADS 3 (mildly suspicious): 3 points. * FNA if 2.5 cm or larger, follow up if 1.5 cm or larger (at 1, 3, and 5 years). TI-RADS 4 (moderately suspicious): 4-6 points. * FNA if 1.5 cm or larger, follow up if 1 cm or larger (at 1, 2, 3, and 5 years). TI-RADS 5 (highly suspicious): 7 points or more. * FNA if 1 cm or larger, follow up if 0.5 cm or larger (every year for 5 years). Dictated by: Pankaj Zarate M.D. on 02/10/2024 at 10:59 Approved by: Pankaj Zarate M.D. on 02/10/2024 at 11:02
[2024-02-10 09:19] LABS: Iron 64 ug/dL (37-170)
[2024-02-10 09:30] LABS: Hemoglobin A1C% w Est Avg Glu 6.8 % (4.0-6.0)
[2024-02-10 10:10] LABS: Vitamin B12 287 pg/mL (239-931)
== END ==
LOC: US 06:36
PROVIDERS: Family Provider Family Medicine; PCP Family Medicine; Referring Provider Family Medicine; Visit Provider Family Medicine
DX: E04.2 Nontoxic multinodular goiter (principal); E11.9 Type 2 diabetes mellitus without complications; E78.5 Hyperlipidemia, unspecified; R53.83 Other fatigue
CPT/HCPCS: 36415; 76536; 80061; 82607; 83036; 83540

== ENCOUNTER → 2024-04-25 06:54 | Outpatient (CLI) | payer OTHER, SELFPAY ==
[2024-04-25 08:23] LABS: Alanine Aminotransferase 23 IU/L (<35); Albumin Globulin Ratio 1.7 (1.0-2.8); Alkaline Phosphatase 52 U/L (38-126); Aspartate Aminotransferase 23 IU/L (14-36); BUN Creatinine Ratio 12.5 (6-22); Bilirubin Total 0.4 mg/dL (0.2-1.3); Blood Urea Nitrogen 8 mg/dL (7-17); Calcium 9.3 mg/dL (8.4-10.2); Carbon Dioxide 23 mmol/L (22-32); Chloride 102 mmol/L (98-107); Estimated Glomerular Filt Rate > 60 mL/min (>60); Globulin 2.4 g/dL (1.7-4.1); Glucose 136 mg/dL (80-110); HEMOLYSIS < 15 (0-50); Potassium 4.6 mmol/L (3.4-5.1); Sodium 134 mmol/L (137-145); Total Protein 6.4 g/dL (6.3-8.2)
[2024-04-25 08:43] LABS: Hemoglobin A1C% w Est Avg Glu 6.9 % (4.0-6.0)
[2024-04-25 09:09] LABS: Vitamin B12 296 pg/mL (239-931)
== END ==
PROVIDERS: Family Provider Family Medicine; PCP Family Medicine; Referring Provider Family Medicine; Visit Provider Family Medicine
DX: E11.9 Type 2 diabetes mellitus without complications (principal)
CPT/HCPCS: 36415; 80053; 82607; 83036

== ENCOUNTER → 2024-04-30 11:55 | Outpatient (CLI) | payer OTHER, SELFPAY ==
[2024-04-30 14:00] LABS: C-Reactive Protein Quant < 0.5 mg/dL (<1.0)
[2024-04-30 15:53] LABS: Clostridium Difficile Tox PCR Negative for C. diff (Negative)
== END ==
LOC: LAB 11:59
PROVIDERS: Family Provider Family Medicine; PCP Family Medicine; Referring Provider Student in an Organized Health Care Education/Training Program; Visit Provider Student in an Organized Health Care Education/Training Program
DX: R11.10 Vomiting, unspecified (principal); K21.9 Gastro-esophageal reflux disease without esophagitis
CPT/HCPCS: 36415; 82656; 83993; 86140; 87177; 87493

== ENCOUNTER → 2024-07-09 11:14 | Outpatient (CLI) | payer OTHER, SELFPAY ==
[2024-07-09 12:42] LABS: Hemoglobin A1C% w Est Avg Glu 7.5 % (4.0-6.0)
[2024-07-09 12:54] LABS: Alanine Aminotransferase 25 IU/L (<35); Albumin 4.4 g/dL (3.5-5.0); Albumin Globulin Ratio 1.8 (1.0-2.8); Alkaline Phosphatase 65 U/L (38-126); Aspartate Aminotransferase 26 IU/L (14-36); BUN Creatinine Ratio 13.7 (6-22); Bilirubin Total 0.5 mg/dL (0.2-1.3); Blood Urea Nitrogen 10 mg/dL (7-17); Carbon Dioxide 27 mmol/L (22-32); Chloride 99 mmol/L (98-107); Estimated Glomerular Filt Rate > 60 mL/min (>60); Globulin 2.5 g/dL (1.7-4.1); Glucose 127 mg/dL (80-110); HEMOLYSIS < 15 (0-50); Potassium 4.2 mmol/L (3.4-5.1); Sodium 135 mmol/L (137-145); Total Protein 6.9 g/dL (6.3-8.2)
[2024-07-09 13:42] LABS: Vitamin B12 912 pg/mL (239-931)
== END ==
PROVIDERS: Family Provider Family Medicine; PCP Family Medicine; Referring Provider Family Medicine; Visit Provider Family Medicine
DX: R79.89 Other specified abnormal findings of blood chemistry (principal); E11.9 Type 2 diabetes mellitus without complications
CPT/HCPCS: 36415; 80053; 82607; 83036

== ENCOUNTER → 2024-12-06 06:53 | Outpatient (CLI) | payer OTHER, SELFPAY ==
[2024-12-06 08:14] LABS: Hemoglobin A1C% w Est Avg Glu 7.8 % (4.0-6.0)
[2024-12-06 08:35] LABS: Alanine Aminotransferase 33 IU/L (<35); Albumin 4.4 g/dL (3.5-5.0); Albumin Globulin Ratio 1.8 (1.0-2.8); Alkaline Phosphatase 55 U/L (38-126); Aspartate Aminotransferase 27 IU/L (14-36); BUN Creatinine Ratio 21.3 (6-22); Bilirubin Total 0.4 mg/dL (0.2-1.3); Blood Urea Nitrogen 16 mg/dL (7-17); Calcium 9.4 mg/dL (8.4-10.2); Carbon Dioxide 25 mmol/L (22-32); Chloride 98 mmol/L (98-107); Cholesterol 172 mg/dL (140-199); Estimated Glomerular Filt Rate > 60 mL/min (>60); Globulin 2.4 g/dL (1.7-4.1); Glucose 191 mg/dL (80-110); HDL Cholesterol 55 mg/dL (40-60); HEMOLYSIS < 15 (0-50); LDL Cholesterol Calculated 86 mg/dL (<100); Potassium 4.6 mmol/L (3.4-5.1); Sodium 134 mmol/L (137-145); Total Protein 6.8 g/dL (6.3-8.2); Triglycerides 155 mg/dL (35-150)
[2024-12-06 08:50] LABS: Free T4, Direct Thyroxine 1.28 ng/dL (0.78-2.19)
[2024-12-06 09:04] LABS: Thyroid Stimulating Hormone 2.23 uIU/mL (0.47-4.68)
== END ==
PROVIDERS: Family Provider Family Medicine; PCP Family Medicine; Referring Provider Family Medicine; Visit Provider Family Medicine
DX: I10 Essential (primary) hypertension (principal); R00.2 Palpitations
CPT/HCPCS: 36415; 80053; 80061; 83036; 84439; 84443

== ENCOUNTER → 2025-02-10 07:12 | Outpatient (CLI) | payer OTHER, SELFPAY ==
--- NOTE | 2025-02-10 07:14 | DI.MRI.S_ITS ---
PROCEDURE: MR BRAIN (IAC) WWO CON INDICATIONS: acoustic neuroma TECHNIQUE: Noncontrast sagittal T1 spin echo, axial FLAIR, axial gradient echo, axial diffusion and ADC through the brain. Axial thin-slice 3D CISS, coronal TruFISP, axial T1 spin echo with fat saturation through the internal auditory canals. After the administration of contrast, thin slice axial and coronal T1 spin echo with fat saturation through the internal auditory canals, and axial and coronal and sagittal T1 spin echo with fat saturation through the brain. COMPARISON: None. FINDINGS: Image quality: Mild motion artifact. Cerebellopontine angles: No cerebellopontine angle masses. Inner ear structures appear normally formed. No suspicious enhancement in the internal auditory canal or along the course of the 7th cranial nerve. CSF spaces: Ventricles are normal in size and shape. No extra-axial fluid collections. Basal cisterns are patent. Brain: No intracranial bleeds or mass effects. Helms-white matter interface is intact. No abnormal intracranial enhancement. Diffusion weighted images demonstrate no acute ischemic insults. Brainstem appears normal. Normal intravascular flow voids are present. Skull and face: Calvarial marrow signal is normal. Orbits appear normal. Sinuses: Sinuses and mastoids are clear. IMPRESSION: No acoustic neuroma is identified. Normal appearance of the internal auditory canals and cerebellopontine angles. Dictated by: Adebayo Baca M.D. on 02/11/2025 at 9:50 Approved by: Adebayo Baca M.D. on 02/11/2025 at 9:58
== END ==
PROVIDERS: Family Provider Family Medicine; PCP Family Medicine; Referring Provider Otolaryngology Plastic Surgery within the Head & Neck; Visit Provider Otolaryngology Plastic Surgery within the Head & Neck
DX: D33.3 Benign neoplasm of cranial nerves (principal); H72.01 Central perforation of tympanic membrane, right ear; H90.5 Unspecified sensorineural hearing loss; R42 Dizziness and giddiness
CPT/HCPCS: 70553; A9579

== ENCOUNTER → 2025-06-12 10:23 | Outpatient (CLI) | payer OTHER, SELFPAY ==
--- NOTE | 2025-06-12 10:23 | DI.MG.S_ITS ---
US breast RT limited, MM diagnostic mammo unilat RT: 06/12/2025 BI-RADS: 2 CLINICAL: 65-year old female for right diagnostic mammogram and right diagnostic breast ultrasound. Tyrer-Cuzick lifetime risk of 4.0%. No personal or first-degree family history of breast cancer. The patient reports a palpable abnormality (more than 2 years) in the right axilla. PRIOR EXAMS Outside films dated 11/16/2024, 12/05/2023. MAMMOGRAPHY TECHNIQUE: 2D and 3D (tomosynthesis) digital mammographic views obtained, with additional images as needed for full coverage. Current study was also evaluated with a Computer Aided Detection (CAD) system. ULTRASOUND TECHNIQUE: Right targeted breast ultrasound of the area of clinical interest and the axilla was performed with image documentation. Real-time coombs scale and color doppler imaging of the area of clinical interest was performed with image documentation. DENSITY Right: C. The breast is heterogeneously dense, which may obscure small masses. MAMMOGRAPHY FINDINGS Right: MLO only, Axilla: There is no suspicious mammographic finding to account for concern by the patient of a palpable lump. No suspicious mass, asymmetry, microcalcification, or other abnormality seen. Right (finding-1): Upper Inner at 1:00, Middle depth, measuring 0.9cm: There is a focal asymmetry present. This finding appears stable compared to the 12/05/2023 mammogram. Right: Upper Outer at 10:00, Middle depth: There are benign punctate calcifications in regional distribution. ULTRASOUND FINDINGS Right (finding-1): Upper Inner at 1:00, 8 cm from nipple, measuring 0.9 x 0.5 x 1.1 cm: Correlating with findings on mammogram, there are clustered microcysts. Doppler shows no vascularity. Right: Axilla, measuring 3.8 x 2.5 x 2.4 cm: Correlating with palpable lump there is an oval, circumscribed, isoechoic mass. Doppler shows no vascularity. This is closely associated with the surrounding muscle and may represent an intramuscular lipoma. IMPRESSION: Right * No evidence of malignancy with benign findings. RECOMMENDATIONS Right: Axilla * Recommend further evaluation of the right axillary lump with an MRI of the chest with and without contrast (with field of view to include the mass in question). COMMENTS: Findings and recommendations were conveyed to the patient during today's evaluation. OVERALL ASSESSMENT CATEGORY BI-RADS-2: Benign. The [employer] recommends annual screening mammography beginning at age 40 for women with average risk of breast cancer. ELECTRONICALLY SIGNED: Delisa Kern M.D. on 06/12/2025 at 12:43:15 PM PT Interpreting Station ID: [id number]
== END ==
LOC: MAMMO 10:23
PROVIDERS: Family Provider Family Medicine; PCP Family Medicine; Referring Provider Family Medicine; Visit Provider Family Medicine
DX: R22.31 Localized swelling, mass and lump, right upper limb (principal); R92.1 Mammographic calcification found on diagnostic imaging of breast; R92.331 Mammographic heterogeneous density, right breast
CPT/HCPCS: 76642; 77065; G0279

== ENCOUNTER → 2025-07-22 09:54 | Outpatient (CLI) | payer OTHER, SELFPAY ==
[2025-07-22 10:27] LABS: Hemoglobin A1C% w Est Avg Glu 6.1 % (4.0-6.0)
[2025-07-22 10:38] LABS: Alanine Aminotransferase 32 IU/L (<35); Albumin 4.7 g/dL (3.5-5.0); Albumin Globulin Ratio 1.7 (1.0-2.8); Alkaline Phosphatase 58 U/L (38-126); Blood Urea Nitrogen 16 mg/dL (7-17); Calcium 9.5 mg/dL (8.4-10.2); Carbon Dioxide 23 mmol/L (22-32); Chloride 97 mmol/L (98-107); Estimated Glomerular Filt Rate > 60 mL/min (>60); Globulin 2.8 g/dL (1.7-4.1); Glucose 120 mg/dL (70-99); HEMOLYSIS < 15 (0-50); Potassium 4.8 mmol/L (3.4-5.1); Sodium 130 mmol/L (137-145); Total Protein 7.5 g/dL (6.3-8.2)
[2025-07-22 11:00] LABS: Microalbumi Creatinin Ratio Ur 23.0 ug/mg CR (<30)
== END ==
PROVIDERS: Family Provider Family Medicine; PCP Family Medicine; Referring Provider Family Medicine; Visit Provider Family Medicine
DX: E11.9 Type 2 diabetes mellitus without complications (principal)
CPT/HCPCS: 36415; 80053; 82043; 82570; 83036